=== PATIENT | female | born 1940 | race African-American/Black ===

== ENCOUNTER 2017-03-20 02:37 | Inpatient (IN) | payer MEDICARE, MEDICAID ==
[~2017-03-20] VITALS: Ht 160 cm; Wt 68.0 kg
--- NOTE | 2017-03-20 02:44 | Emergency Room Report ---
History of Present Illness General Source: Patient, EMS Present Illness HPI Is a 76-year-old female with history smoking and history of VD. She present to shortness of breath. She was just discharged from [facility] today for pneumonia. She was on the toilet for couple hours unable to get up. She was very weak. Her roommate called 911. Patient does not want to be in the hospital. Denies any chest pain. Complaining of soreness of breath. No nausea no vomiting. No fever or chills. Still smoking. Allergies: Coded Allergies: No Known Allergies (Unverified , 03/20/17) Patient History Past Medical History: see triage record, old chart reviewed, HTN, asthma, COPD Past Surgical History: other Pertinent Family History: none Social History: Reports: smoking, Denies: drug use Now: No Immunizations: other Reviewed Nursing Documentation: PMH: Agreed, PSxH: Agreed Review of Systems Eye: Denies: eye pain, blurred vision ENT: Denies: ear pain, nose congestion, throat swelling Respiratory: Reports: cough, shortness of breath Cardiovascular: Denies: chest pain, palpitations Gastrointestinal: Denies: abdominal pain, diarrhea, nausea, vomiting Musculoskeletal: Denies: back pain, joint pain Skin: Denies: rash Neurological: Denies: headache, numbness Endocrine: Denies: increased thirst, increased urine Hematologic/Lymphatic: Denies: easy bruising All Other Systems: negative except mentioned in HPI Physical Exam vitals with hypoxia Sp02 EP Interpretation: reviewed, abnormal General Appearance: alert, moderate distress, Chronically Ill Head: normocephalic, atraumatic Eyes: bilateral eye PERRL, bilateral eye EOMI ENT: hearing grossly normal, normal pharynx Neck: full range of motion, supple, no meningismus Respiratory: chest non-tender, rhonchi Cardiovascular #1: regular rate, rhythm, no murmur Gastrointestinal: normal bowel sounds, non tender, no mass, no organomegaly, no bruit, non-distended Musculoskeletal: back normal, normal range of motion Neurologic: alert, oriented x3 Psychiatric: mood/affect normal Skin: warm/dry Medical Decision Making Diagnostic Impression: Primary Impression: Respiratory distress Additional Impressions: Respiratory failure, acute and chronic Qualified Codes: J96.21 - Acute and chronic respiratory failure with hypoxia COPD with exacerbation ER Course Presents with respiratory distress with a combination of COPD exacerbation and possible pneumonia. She's already on antibiotics. I discussed the case with Dr. Sanchez who knows patient well. He just discharged patient from [facility] to her home. He wanted to send her to the skilled nursing but patient refused. Patient unable to care for herself and there is no nausea care for her. She will be placed in observation in he was tried at center to the skilled nursing. She felt better after nebulizer treatment and oxygen. Lab Results Impression labs unremarkable except for elevated white count EKG Diagnostic Results Rate: normal Rhythm: NSR ST Segments: no acute changes Rhythm Strip Diag. Results Rhythm Strip Time: 02:43 EP Interpretation: yes Rate: 95 Rhythm: NSR, no PVC's, no ectopy Status: improved Disposition: PLACE IN OBSERVATION Condition: Serious DUY FALLON M.D. Mar 20, 2017 02:43
[2017-03-20] MEDS ORDERED: Ipratropium 0.02% Inh Soln 2.5ml UD HHN ONE (02:45)
[2017-03-20] MEDS ORDERED: Albuterol ud Inhalation HHN ONE (02:45)
[2017-03-20] MEDS ORDERED: SEROQUEL50 MG ORAL (02:53)
[2017-03-20] MEDS ORDERED: ALBUTEROL2.5 MG/3 M INH (02:53)
[2017-03-20] MEDS ORDERED: BENADRYL25 MG ORAL (02:53)
[2017-03-20] MEDS ORDERED: NORCO 10-325 T1 EACH ORAL (02:53)
[2017-03-20] MEDS ORDERED: COLACE100 MG ORAL (02:53)
[2017-03-20] MEDS ORDERED: AZITHROMYCIN250 MG ORAL (02:53)
[2017-03-20 03:25] LABS: MEAN CORPUSCULAR HEMOGLOBIN 28.6 PG (27.0-31.0); MEAN CORPUSCULAR HGB CONC 31.2 G/DL (32.0-36.0); MEAN CORPUSCULAR VOLUME 92 FL (80-99); MEAN PLATELET VOLUME 6.8 FL (6.5-10.1); PLATELET COUNT 400 K/UL (150-450); RED BLOOD COUNT 4.35 M/UL (4.20-5.40); RED CELL DISTRIBUTION WIDTH 14.6 % (11.6-14.8); WHITE BLOOD COUNT 17.4 K/UL (4.8-10.8)
[2017-03-20 03:32] VITALS: BP 134/79
[2017-03-20 03:35] LABS: INR 1.2 (0.9-1.1); PROTHROMBIN TIME 12.2 SEC (9.30-11.50)
[2017-03-20 03:49] LABS: ALANINE AMINOTRANSFERASE 37 U/L (12-78); ALBUMIN/GLOBULIN RATIO 0.5 (1.0-2.7); ANION GAP 8 mmol/L (5-15); ASPARTATE AMINO TRANSFERASE 33 U/L (15-37); CALCIUM 8.5 MG/DL (8.5-10.1); CARBON DIOXIDE 28 MMOL/L (21-32); CHLORIDE 107 MMOL/L (98-107); CKMB 2.2 NG/ML (0.0-3.6); CREATININE 0.6 MG/DL (0.55-1.30); POTASSIUM 4.4 MMOL/L (3.5-5.1); SODIUM 142 MMOL/L (136-145); TOTAL PROTEIN 6.3 G/DL (6.4-8.2)
[2017-03-20] MEDS ORDERED: Norco 5mg/325mg tab ORAL ONE (04:45)
[2017-03-20 04:47] LABS: APPEARANCE,URINE CLEAR
[2017-03-20 04:48] LABS: KETONES,URINE 2+ (NEGATIVE); NITRITE,URINE NEGATIVE (NEGATIVE); PROTEIN,URINE 2+ (NEGATIVE)
[2017-03-20 04:49] VITALS: BP 141/70
[2017-03-20 04:49] LABS: BACTERIA,URINE FEW /HPF; LEUKOCYTE ESTERASE ,URINE 1+ (NEGATIVE); RBC,URINE 0-2 /HPF (0 - 2); SQUAMOUS EPITHELIAL CELL,UR MANY /LPF (NONE/OCC); UROBILINOGEN,URINE 1 MG/DL (0.0-1.0); WBC,URINE 0-2 /HPF (0 - 2)
[2017-03-20 06:52] VITALS: BP 101/44
[2017-03-20] MEDS ORDERED: Zolpidem 5mg tab ORAL PRN (09:00)
[2017-03-20] MEDS ORDERED: Miralax 17gm pkt ORAL PRN (09:00)
[2017-03-20] MEDS ORDERED: Morphine Sulfate 2mg/ml Inj IVP PRN ×2 (09:00)
[2017-03-20] MEDS ORDERED: Milk of Magnesia 30ml Ud ORAL PRN (09:00)
[2017-03-20] MEDS ORDERED: Norco 10mg/325mg tab ORAL PRN (09:00)
[2017-03-20] MEDS ORDERED: Docusate 100mg cap ORAL SCH ×2 (09:00→10:00)
[2017-03-20] MEDS ORDERED: Heparin 5000 units/ml inj SUBQ SCH (10:00)
[2017-03-20] MEDS: Albuterol/Ipratropium 3ml neb HHN SCH ×2 (10:09→17:18)
--- NOTE | 2017-03-20 10:10 | Diagnostic Imaging Report ---
Indication: SOB Technique: One view of the chest Comparison: 10/07/2011 Findings: Again demonstrated is suboptimal inspiration with bilateral basilar atelectasis. There is probably some pleural fluid bilaterally. There may be some consolidation at the left lung base. The heart is upper limits normal in size. Aorta is tortuous calcified Impression: Bilateral basilar atelectasis and possible consolidation, bilateral pleural effusions
[2017-03-20] MEDS: Norco 10mg/325mg tab ORAL PRN ×2 (11:42→18:09)
[2017-03-20 12:00] VITALS: BP 132/71
[2017-03-20] MEDS ORDERED: Azithromycin 250mg tab ORAL SCH (12:00)
[2017-03-20 16:00] VITALS: BP 126/71
--- NOTE | 2017-03-20 18:16 | History and Physical Report ---
DATE OF ADMISSION: 03/20/2017 REASON FOR ADMISSION: 1. Failure to thrive. 2. Shortness of breath. 3. Leukocytosis. HISTORY OF PRESENT ILLNESS/INJURY: This is a 76-year-old female that I just discharged yesterday from [facility] where she had been admitted for several days with colitis, constipation, as well as left lung pneumonia. All her cultures have been negative. The patient was discharged home with oral antibiotics. She now represents with high white count, which is actually trending down from previous. Additionally, her caregiver/roommate reported that she is no longer to care for herself. In the past, I have discussed placement with her, and the patient declined group home. I have discussed this also with her daughter in [place]. PAST MEDICAL HISTORY: Notable for COPD, hypertension, chronic constipation, and chronic narcotic usage. SOCIAL HISTORY: She admits to smoking. No history of alcohol or substance abuse. REVIEW OF SYSTEMS: Denies any headaches, hematemesis, melena, hematochezia, night sweats, or weight loss. she admits to having abdominal pain and shortness of breath. PHYSICAL EXAMINATION: GENERAL: An elderly female. HEENT: Unremarkable. LUNGS: Decreased breath sounds bilaterally with few rhonchi. HEART: Heart sounds normal. ABDOMEN: Soft with mild left lower quadrant discomfort. LABORATORY AND DIAGNOSTIC DATA: Lab testing was notable for white count of 7000, hemoglobin 12.4. Chemistries are normal. Coagulations are negative. INR is 1.2. Urinalysis is negative. X-ray of chest shows left lower lobe infiltrate. IMPRESSION: 1. Failure to thrive. 2. Resolving pneumonia. 3. Chronic constipation. 4. Colitis. DISCUSSION: We will place her in observation. Discussed with the ER physician. The patient needs placement. We will plan for discharge to group home. Continue breathing treatments. We will follow. Jose C Sanchez M.D. DR: DIANA JOB#: [id number] CC:
--- NOTE | 2017-03-22 23:56 | Consultation ---
History of Present Illness General Date patient seen: Mar 20, 2017 Chief Complaint: Dyspnea/Respdistress Present Illness Allergies: Coded Allergies: No Known Allergies (Unverified , 03/20/17) Medication History Scheduled Azithromycin* (Zithromax*), 250 MG ORAL DAILY, (Reported) Docusate Sodium* (Colace*), 100 MG ORAL TWICE A DAY, (Reported) Quetiapine Fumarate (Seroquel), 50 MG ORAL DAILY, (Reported) Scheduled PRN Albuterol Sulfate* (Albuterol Sulfate Hhn*), 3 ML INH Q4H PRN for Shortness of Breath, (Reported) Diphenhydramine Hcl* (Benadryl*), 25 MG ORAL Q6H PRN for Itching, (Reported) Hydrocodone Bit/Acetaminophen 10-325* ([place] 10-325*), 1 TAB ORAL Q4H PRN for For Pain, (Reported) Patient History Healthcare decision maker Resuscitation status Full Code Advanced Directive on File Physical Exam Height (Feet): 5 Height (Inches): 3.00 Weight (Pounds): 150 Don Fatima M.D. Mar 22, 2017 23:56
--- NOTE | 2017-03-23 11:54 | Discharge Summary ---
Discharge Summary Hospital Course Date of Admission Mar 20, 2017 at 04:23 Date of Discharge Mar 20, 2017 at 19:14 Admitting Diagnosis chest pain , COPD exacerbation HPI Lolita Sarabia is a 76 year old female who was admitted on Mar 20, 2017 at 04: 23 for Chronic Obstructive Pulmonary Disease Exacerbation Hospital Course dc summary #[id number] Discharge Medications Continued Medications: Albuterol Sulfate* (Albuterol Sulfate Hhn*) 2.5 Mg/3 Ml Vial.neb 3 ML INH Q4H PRN for Shortness of Breath, EA Azithromycin* (Zithromax*) 250 Mg Tablet 250 MG ORAL DAILY, TAB Diphenhydramine Hcl* (Benadryl*) 25 Mg Capsule 25 MG ORAL Q6H PRN for Itching, CAP Docusate Sodium* (Colace*) 100 Mg Capsule 100 MG ORAL TWICE A DAY, CAP Hydrocodone Bit/Acetaminophen 10-325* ([place] 10-325*) 1 Each Tablet 1 TAB ORAL Q4H PRN for For Pain, TAB 0 Refills PRN PAIN Quetiapine Fumarate (Seroquel) 50 Mg Tablet 50 MG ORAL DAILY, TAB 0 Refills Discharge Condition Upon Discharge: stable Discharge Disposition Patient was discharged to SNF Discharge Diagnoses: Discharge Instructions Discharge Instructions Special Instructions I have been assigned to complete a D/C Summary on this account. I was not involved in the patient management Lashon Prater NP ([place]) Mar 23, 2017 11:54
--- NOTE | 2017-03-23 18:00 | Discharge Summary 2 SIG ---
DATE OF ADMISSION: 03/20/2017 DATE OF DISCHARGE: 03/20/2017 REASON FOR ADMISSION: 76-year-old female with history of COPD, smoking, asthma, presented with shortness of breath. The patient was just discharged home from [facility] where she was treated for pneumonia, on oral antibiotic . At home she was unable to get out of the toilet seat and was very weak. Her roommate called paramedics. She denied chest pain, but reported some shortness of breath. No fever. No chills. The patient is a current smoker. EKG revealed normal sinus rhythm. Laboratories were unremarkable except leukocytosis-17.4. No anemia. Stable electrolytes. Chest x-ray revealed bilateral basilar atelectasis, possible consolidation, bilateral pleural effusion. The patient was unable to take care of herself at home, and was placed on observation for jail placement. HOSPITAL STAY: The patient was started on supplemental oxygen to keep pulse oximetry above 92%, pulmonary toilet provided as needed. The patient was already on antibiotic. Blood culture preliminary negative. Bowel regimen instituted. DVT prophylaxis provided. Pain management was addressed. Placement was found. The patient was accepted at [facility]. The patient was transferred via ambulance. Due to rapid and unexpected improvement in patient's condition, the patient was discharged in one day. FINAL DIAGNOSES: 1. Pneumonia, resolving. 2. Chronic obstructive pulmonary disease. 3. Failure to thrive, unable to care for herself. 4. Chronic constipation. 5. Current smoker. DISCHARGE MEDICATIONS: See medication reconciliation list. DISCHARGE INSTRUCTIONS: The patient discharged [facility]. FOLLOWUP: Follow up with medical doctor at the facility. Jose C Sanchez M.D. I have been assigned to dictate discharge summary on this account and I was not involved in the patient's management. Lashon PinedaHelen Hayes HospitalChidi N.P. DR: Nicci JOB#: [id number] CC: COLE
--- NOTE | 2017-04-01 17:27 | Cardiology Report ---
APPROVED REPORT EKG Measurement Heart [id number] Normal sinus rhythm Normal ECG
== END 2017-03-20 19:14 | DRG 190 ==
LOC: EDBD 02:37 → EDUNIT# 02:37 → EMR 02:47 → 2E 04:23 → EDBEDREQ 06:05
DX: J44.1 Chronic obstructive pulmonary disease with (acute) exacerbation (principal); J18.9 Pneumonia, unspecified organism; K59.00 Constipation, unspecified; F17.200 Nicotine dependence, unspecified, uncomplicated; I10 Essential (primary) hypertension; R62.7 Adult failure to thrive
CPT/HCPCS: 36415; 71010; 80053; 81003; 82550; 82553; 83880; 84484; 85025; 85610; 85730; 87040; 87081; 93005; 94640; 94664; 99285; J7620